=== PATIENT | male | born 1985 | race Caucasian/White ===

== ENCOUNTER 2018-06-30 16:30 | Emergency (ER) | payer MEDICAID ==
[2018-06-30 16:47] VITALS: BP 128/92; PULSE 97; RESP 18; TEMP 99.2; O2SAT 98
[2018-06-30] MEDS ORDERED: Alum-Mag Hydrox-Simethicone Susp (30 mL) PO STA (17:34)
--- NOTE | 2018-06-30 17:36 | C.PDOC ---
History Of Present Illness 33 year old male presents to the ED for evaluation of nausea and vomiting which began 4 days ago. Patient notes that his four kids and are sick at home with similar symptoms. Patient is requesting a two-day work note. He has been drinking fluids, such as Gatorade. Patient denies abdominal pain, back pain or any urinary symptoms at this time. Time Seen by Provider: 06/30/18 17:29 Chief Complaint (Nursing): Flu-like Symptoms History Per: Patient History/Exam Limitations: no limitations Onset/Duration Of Symptoms: Days (4) Current Symptoms Are (Timing): Still Present Associated Symptoms: Nausea, Vomiting Past Medical History Reviewed: Historical Data, Nursing Documentation, Vital Signs Vital Signs: Last Vital Signs Temp 99.2 F 06/30/18 16:43 Pulse 97 H 06/30/18 16:43 Resp 18 06/30/18 16:43 BP 128/92 H 06/30/18 16:43 Pulse Ox 98 06/30/18 16:43 - Medical History PMH: No Chronic Diseases Surgical History: No Surg Hx Family History: States: Unknown Family Hx - Social History Hx Alcohol Use: No Hx Substance Use: No - Immunization History Hx Tetanus Toxoid Vaccination: No Hx Influenza Vaccination: No Hx Pneumococcal Vaccination: No Review Of Systems Gastrointestinal: Positive for: Nausea, Vomiting. Negative for: Abdominal Pain Genitourinary: Negative for: Dysuria, Frequency, Hematuria Musculoskeletal: Negative for: Back Pain Physical Exam - Physical Exam Appears: Non-toxic, No Acute Distress Skin: Normal Color, Warm, Dry Head: Atraumatic, Normacephalic Eye(s): bilateral: Normal Inspection Oral Mucosa: Moist Neck: Supple Chest: Symmetrical, No Deformity, No Tenderness Cardiovascular: Rhythm Regular, No Murmur Respiratory: Normal Breath Sounds, No Rales, No Rhonchi, No Wheezing Gastrointestinal/Abdominal: Soft, No Tenderness, No Guarding, No Rebound Extremity: Normal ROM, Capillary Refill (less than 2 seconds ) Neurological/Psych: Oriented x3, Normal Speech, Normal Cognition ED Course And Treatment O2 Sat by Pulse Oximetry: 98 (on RA) Pulse Ox Interpretation: Normal Progress Note: Maalox PO given. Medical Decision Making Medical Decision Making: viral gastroenteritis, same with 5 other family members BRAT diet educated needs work note to return 2 days Disposition Doctor Will See Patient In The: Office Counseled Patient/Family Regarding: Studies Performed, Diagnosis - Disposition Referrals: [facility] [Outside] [facility] [Outside] [facility] [Outside] [facility] [Outside] Disposition: HOME/ ROUTINE Disposition Time: 17:35 Condition: GOOD Additional Instructions: continue BRAT diet for 3 days: Bananas, white rice, apples, toast/Bread plenty of fluids/Gatorade Maalox as needed Instructions: Viral Gastroenteritis Forms: [facility] (Tajik), Work Excuse - Clinical Impression Clinical Impression: Gastroenteritis and colitis, viral - Scribe Statement The provider has reviewed the documentation as recorded by the Scribe (Halle Muir) Provider Attestation: All medical record entries made by the Scribe were at my direction and personally dictated by me. I have reviewed the chart and agree that the record accurately reflects my personal performance of the history, physical exam, medical decision making, and the department course for this patient. I have also personally directed, reviewed, and agree with the discharge instructions and disposition.
[2018-06-30] MEDS ORDERED: Alum-Mag Hydrox-Simethicone Susp (30 mL) ONE (17:40)
== END 2018-06-30 18:10 | disposition home or self-care (01) ==
LOC: C.ER 16:30
DX: A08.4 Viral intestinal infection, unspecified (principal)

== ENCOUNTER 2019-01-22 20:38 | Emergency (ER) | payer SELFPAY ==
[2019-01-22 21:04] VITALS: TEMP 98.5; O2SAT 97
[2019-01-22] MEDS ORDERED: Albuterol 0.083% Inhal Sol (2.5 mg/3 mL) UD IH STA (21:11)
[2019-01-22 21:30] VITALS: RESP 14
--- NOTE | 2019-01-22 21:40 | C.PDOC ---
History Of Present Illness 33 year old male presents complaining of SOB and wheezing. Patient has Hx of dust allergy which typically gives him these symptoms, he typically uses his albuterol pump but states he ran out so he came in to the ER. Denies cough, fever, chest pain, throat pain, or sensation of throat closing up. Time Seen by Provider: 01/22/19 21:06 Chief Complaint (Nursing): Shortness Of Breath History Per: Patient History/Exam Limitations: no limitations Onset/Duration Of Symptoms: Hrs Current Symptoms Are (Timing): Still Present Initiating Event: Other (Dust exposure) Current Respiratory Medications: Albuterol Associated Symptoms: denies: Other (Cough, fever, chest pain, throat pain, throat closing) Recent travel outside of the [place]: No Past Medical History Reviewed: Historical Data, Nursing Documentation, Vital Signs Vital Signs: Last Vital Signs Temp 98.5 F 01/22/19 21:00 Pulse 95 H 01/22/19 21:00 Resp 14 01/22/19 21:25 BP 130/90 01/22/19 21:00 Pulse Ox 97 01/22/19 21:00 Primary Care Provider: FAMILY PROVIDER,NO Family History: States: Unknown Family Hx - Social History Hx Alcohol Use: Yes Hx Substance Use: No - Immunization History Hx Tetanus Toxoid Vaccination: No Hx Influenza Vaccination: No Hx Pneumococcal Vaccination: No Review Of Systems Except As Marked, All Systems Reviewed And Found Negative. Respiratory: Positive for: Shortness of Breath, Wheezing Physical Exam - Physical Exam Appears: Non-toxic Skin: Normal Color, Warm Head: Atraumatic, Normacephalic Eye(s): bilateral: Normal Inspection Ear(s): Bilateral: Normal Nose: Normal Oral Mucosa: Moist, No Drooling Throat: Normal, No Other (Swelling) Neck: Normal, Supple Chest: Symmetrical, No Tenderness Cardiovascular: Rhythm Regular Respiratory: Decreased Breath Sounds (Mildly), No Accessory Muscle Use, No Rales, No Rhonchi, No Stridor, No Wheezing Gastrointestinal/Abdominal: Soft, No Tenderness Neurological/Psych: Oriented x3, Normal Speech Gait: Steady ED Course And Treatment O2 Sat by Pulse Oximetry: 97 (Room air) Pulse Ox Interpretation: Normal Progress Note: Albuterol administered. Disposition - Disposition Referrals: [facility] [Outside] Disposition: HOME/ ROUTINE Disposition Time: 22:50 Condition: STABLE Prescriptions: Albuterol HFA [Ventolin HFA 90 mcg/actuation (8 g)] 0.09 mg IH Q4 PRN #1 puff PRN Reason: Wheezing Instructions: Wheezing Forms: [facility] (Malawian) Print Language: BRUNEIAN - Clinical Impression Clinical Impression: Bronchospasm, Dust allergy - Scribe Statement The provider has reviewed the documentation as recorded by the Scribe Carlos Ramachandran All medical record entries made by the Scribe were at my direction and personally dictated by me. I have reviewed the chart and agree that the record accurately reflects my personal performance of the history, physical exam, medical decision making, and the department course for this patient. I have also personally directed, reviewed, and agree with the discharge instructions and disposition.
[2019-01-22] MEDS ORDERED: Albuterol 0.083% Inhal Sol (2.5 mg/3 mL) UD ONE (21:41)
[2019-01-22 23:03] VITALS: BP 120/80; PULSE 80
== END 2019-01-22 23:03 | disposition home or self-care (01) ==
LOC: C.ER 20:38
DX: J98.01 Acute bronchospasm (principal); J30.89 Other allergic rhinitis

== ENCOUNTER 2019-01-31 09:32 | Emergency (ER) | payer MEDICAID, OTHER ==
--- NOTE | 2019-01-31 10:17 | C.PDOC ---
History Of Present Illness 33 y/o male patient, with hx of asthma and occasional smoker, presents to the ER with c/o body aches, sore throat, tactile fever, chills, bilateral earache, and headache for 1 day. Pt states his family member is sick with similar symptoms and she is feeling somewhat better without intervention. Pt denies chest pain, SOB, abdominal pain, diarrhea, constipation, urinary symptoms, nausea, or vomiting. This is not the worse headache of his life. There is no weakness. Patient states he has not treated his symptoms thus far. Patient states he is able to swallow liquids and solids but with increased pain. No other complaints at this time. Time Seen by Provider: 01/31/19 10:06 Chief Complaint (Nursing): Flu-like Symptoms History Per: Patient History/Exam Limitations: no limitations Onset/Duration Of Symptoms: Days (x1) Current Symptoms Are (Timing): Still Present Sick Contacts (Context): Family Member(s) Past Medical History Reviewed: Historical Data, Nursing Documentation, Vital Signs Vital Signs: Last Vital Signs Temp 100.1 F H 01/31/19 09:35 Pulse 134 H 01/31/19 09:35 Resp 17 01/31/19 09:35 BP 131/92 H 01/31/19 09:35 Pulse Ox 96 01/31/19 09:35 Primary Care Provider: FAMILY PROVIDER,NO - Medical History PMH: Asthma Family History: States: Unknown Family Hx - Social History Hx Tobacco Use: Yes Hx Alcohol Use: Yes Hx Substance Use: No - Immunization History Hx Tetanus Toxoid Vaccination: Yes Hx Influenza Vaccination: No Hx Pneumococcal Vaccination: No Review Of Systems Except As Marked, All Systems Reviewed And Found Negative. Constitutional: Positive for: Chills. Negative for: Fever ENT: Positive for: Ear Pain, Throat Pain Respiratory: Negative for: Cough Gastrointestinal: Negative for: Nausea, Vomiting, Diarrhea Musculoskeletal: Positive for: Back Pain, Other (bodyaches ) Neurological: Positive for: Headache (sinus ) Physical Exam - Physical Exam Appears: Non-toxic, No Acute Distress Skin: Normal Color, Warm, Dry, No Rash Head: Atraumatic, Normacephalic, No Tenderness Eye(s): bilateral: Normal Inspection, PERRL, EOMI Ear(s): Bilateral: Normal Nose: Normal, No Discharge Oral Mucosa: Moist Tongue: Normal Appearing Lips: Normal Appearing Throat: Erythema, No Exudate, Other (mild tonsilar swelling bilaterally, uvula midline ) Neck: Normal ROM, Supple Lymphatic: Adenopathy (mild anterior cervical ) Chest: Symmetrical, No Deformity Cardiovascular: Rhythm Regular, Other (tachycardiac ) Respiratory: Normal Breath Sounds, No Rales, No Rhonchi, No Wheezing Gastrointestinal/Abdominal: Normal Exam, Soft, No Tenderness Back: No CVA Tenderness Extremity: Normal ROM, No Tenderness Extremity: Bilateral: Atraumatic Neurological/Psych: Oriented x3, Normal Speech, Normal Cognition ED Course And Treatment O2 Sat by Pulse Oximetry: 96 (RA) Pulse Ox Interpretation: Normal Medical Decision Making Medical Decision Making: Plans: -- throat cx -- influenza A B stat -- rapid strep -- ibuprofen -- tylenol 01/31/29 1033 Patient reevaluated. Vitals improved s/p tylenol and advil. Patient states he is feeling much better. Patient is able to tolerate PO. Complains of fever, bodaches and sore throat. Tonsils swollen bilaterally without any evidence of tonsillar abscess. Advised symptoms may be viral in nature and recommended symptomatic treatment. Will write rx for antibiotics but encouraged to hold taking antibiotic unless symptoms persist or worsen in the next 2-3 days. Appears well. Nontoxic. Throat culture obtained as well. Disposition Counseled Patient/Family Regarding: Studies Performed, Diagnosis, Rx Given - Disposition Referrals: [facility] [Outside] Gurinder Zhao MD [Staff Provider] - Disposition: HOME/ ROUTINE Disposition Time: 10:39 Condition: IMPROVED Additional Instructions: Follow up with clinic and ENT. Salt water gargles. Take tylenol and/or motrin for fevers and aches. Rest. Drink plenty of fluids. Return if symptoms worsen or persist. Prescriptions: Amoxicillin 500 mg PO TID 10 Days #30 tablet Instructions: Sore Throat in Adults Forms: General Discharge Instructions, [facility] (Lithuanian) Print Language: THAI - Clinical Impression Clinical Impression: Acute sore throat - PA / INSTRUCTIONAL SERVICES LIBRARIAN / Resident Statement / has reviewed & agrees with the documentation as recorded. - Scribe Statement The provider has reviewed the documentation as recorded by the Sheila Cheung Do All medical record entries made by the Scribe were at my direction and personally dictated by me. I have reviewed the chart and agree that the record accurately reflects my personal performance of the history, physical exam, medical decision making, and the department course for this patient. I have also personally directed, reviewed, and agree with the discharge instructions and disposition.
[2019-01-31 10:30] VITALS: BP 116/73; PULSE 103; RESP 16; TEMP 99.8; O2SAT 96
== END 2019-01-31 11:00 | disposition home or self-care (01) ==
LOC: C.ER 09:32
DX: J02.9 Acute pharyngitis, unspecified (principal)